=== PATIENT | female | born 2000 | race Two or more races ===

== ENCOUNTER 2022-06-17 16:04 | Emergency (ER) | payer OTHER ==
[~2022-06-17] VITALS: Ht 177.8 cm; Wt 108.9 kg
== END 2022-06-17 17:04 | disposition home or self-care (01) ==
LOC: ER 16:04
DX: S81.022A Laceration with foreign body, left knee, initial encounter (principal); W45.8XXA Other foreign body or object entering through skin, initial encounter; W22.09XA Striking against other stationary object, initial encounter; Y93.9 Activity, unspecified; Y92.830 Public park as the place of occurrence of the external cause